=== PATIENT | female | born 1975 | race Two or more races ===

== ENCOUNTER 2019-02-10 20:18 | Emergency (ER) | payer MEDICAID ==
[~2019-02-10] VITALS: Ht 167.6 cm; Wt 77.1 kg
[2019-02-11] MEDS ORDERED: HYDROcodone-ACET 10/325MG TAB PO ONE (00:15)
[2019-02-11] MEDS ORDERED: BACLOFEN 10 MG TAB PO ONE (00:15)
[2019-02-11 01:15] VITALS: BP 142/75
== END 2019-02-11 01:34 | disposition home or self-care (01) ==
LOC: EDBD 20:18 → ER 20:25
DX: M62.838 Other muscle spasm (principal); R07.89 Other chest pain; V89.2XXA Person injured in unspecified motor-vehicle accident, traffic, initial encounter; Y93.89 Activity, other specified; Y92.89 Other specified places as the place of occurrence of the external cause; Y99.8 Other external cause status
CPT/HCPCS: 71046; 72125